=== PATIENT | female | born 1965 | race Caucasian/White ===

== ENCOUNTER 2020-05-10 11:07 | Emergency (ER) | payer SELFPAY ==
[~2020-05-10] VITALS: Ht 157.5 cm; Wt 55.0 kg
[2020-05-10 11:24] VITALS: BP 167/97
[2020-05-10] MEDS ORDERED: ONDANSETRON 4MG ODT PO ONE (11:45)
[2020-05-10] MEDS ORDERED: HYDROCODONE/ACETAMINOPHEN 5/325MG TABLET PO ONE (11:45)
== END 2020-05-10 13:19 | disposition home or self-care (01) ==
LOC: ER 11:27
DX: S49.81XA Other specified injuries of right shoulder and upper arm, initial encounter (principal); S59.801A Other specified injuries of right elbow, initial encounter; W18.30XA Fall on same level, unspecified, initial encounter; Y93.89 Activity, other specified; Y92.018 Other place in single-family (private) house as the place of occurrence of the external cause
CPT/HCPCS: 73030; 73080; 99284; Q0162